=== PATIENT | male | born 1945 | race Caucasian/White ===

== ENCOUNTER → 2016-09-17 | Outpatient (CLI) | payer OTHER ==
[~2016-09-17] VITALS: Ht 170.2 cm; Wt 83.0 kg
[2016-09-17 13:05] VITALS: BP 123/84; PULSE 83; Ht 170.2 cm; Wt 83.0 kg
== END | disposition home or self-care (01) ==
LOC: C.NEUR 12:02
PROVIDERS: ATTEND Internal Medicine Pulmonary Disease
DX: G47.33 Obstructive sleep apnea (adult) (pediatric) (principal); G47.34 Idiopathic sleep related nonobstructive alveolar hypoventilation

== ENCOUNTER → 2017-09-20 | Outpatient (CLI) | payer OTHER ==
[~2017-09-20] VITALS: Ht 170.2 cm; Wt 149.9 kg
[2017-09-20 12:20] VITALS: BP 118/78; PULSE 76; Ht 170.2 cm; Wt 149.9 kg
== END | disposition home or self-care (01) ==
LOC: C.NEUR 12:00
PROVIDERS: ATTEND Internal Medicine Pulmonary Disease
DX: G47.33 Obstructive sleep apnea (adult) (pediatric) (principal); G47.34 Idiopathic sleep related nonobstructive alveolar hypoventilation; I10 Essential (primary) hypertension; E66.9 Obesity, unspecified; F41.9 Anxiety disorder, unspecified; J45.909 Unspecified asthma, uncomplicated; E11.9 Type 2 diabetes mellitus without complications; E78.5 Hyperlipidemia, unspecified; Z79.899 Other long term (current) drug therapy; Z79.84 Long term (current) use of oral hypoglycemic drugs; Z88.8 Allergy status to other drugs, medicaments and biological substances